=== PATIENT | male | born 1960 | race African-American/Black ===

== ENCOUNTER 2022-08-25 14:18 | Inpatient (IN) | payer MEDICARE, MEDICAID ==
[~2022-08-25 14:18] MED LIST: Iopamidol-370 76% 500 ML 1 ML ONE
[2022-08-25] MEDS ORDERED: niCARdipine 25 MG in Sodium Chloride 0.9% 250 ML 250 ML IVPB SCH (15:00)
[2022-08-25] MEDS ORDERED: niCARdipine 25 MG/10 ML VIAL ONE (16:36)
[2022-08-25] MEDS ORDERED: Morphine 2 MG/ML VIAL SLOW IVP PRN (21:10)
[2022-08-25] MEDS ORDERED: traMADol HCl 50 MG TAB PO PRN (21:10)
[2022-08-25] MEDS ORDERED: Acetaminophen 325 MG TAB PO PRN ×2 (21:10→23:31)
[2022-08-25] MEDS ORDERED: Acetaminophen/Codeine 30-300mg Tablet PO PRN (21:10)
[2022-08-25] MEDS ORDERED: HYDROcodone/Acetaminophen 5/325 mg Tablet PO PRN (21:15)
[2022-08-25] MEDS ORDERED: Dexamethasone 10 MG/ML VIAL SLOW IVP SCH (21:30)
[2022-08-25] MEDS ORDERED: Albuterol Sulfate 2.5 mg/3 ml Neb NEB PRN (21:31)
[2022-08-25] MEDS ORDERED: Ondansetron PF 4 MG/2 ML Vial IVP PRN (23:31)
[2022-08-26] MEDS: Nicotine 21 MG PATCH TD SCH (00:16)
[2022-08-26 00:27] VITALS: BMI 28.0
[2022-08-26 03:26] LABS: #Lymphocytes 1.6 thou/uL (1.20-3.40); #Monocytes 0.3 thou/uL (0.11-0.59); #Neutrophils 5.3 thou/uL (1.40-6.50); %Basophils 0.4 % (0.0-1.0); %Eosinophils 0.4 % (0.0-10.0); %Monocytes 4.6 % (0.0-10.0); %Neutrophils 72.7 % (42.0-75.0); Hemoglobin 17.6 g/dL (14.0-18.0); Mean Corpuscular HGB CONC 34.3 g/dL (32.0-36.0); Mean Corpuscular Hemoglobin 31.3 pg (27.0-31.0); Mean Corpuscular Volume 91.3 fl (78.0-98.0); Mean Platelet Volume 8.7 fL (7.4-10.4); Platelet Count 140 10x3/uL (130-400); RBC Distribution Width 11.3 % (11.5-14.5); Red Blood Cell (RBC) Count 5.63 mill/uL (4.70-6.10); White Blood Cell (WBC) Count 7.3 10x3/uL (4.8-10.8)
[2022-08-26 03:53] LABS: Anion Gap 16 mmol/L (10-20); BUN (Urea Nitrogen) 13 mg/dL (8.4-25.7); Calc. Creatinine Clearance 90 mL/min (70-130); Calcium 9.6 mg/dL (7.8-10.44); Carbon Dioxide 17 mmol/L (22-29); Chloride 103 mmol/L (98-107); Estimated GFR 88; Glucose 118 mg/dL (70-105); Potassium 3.9 mmol/L (3.5-5.1); Sodium 132 mmol/L (136-145)
[2022-08-26] MEDS: Dexamethasone 4 MG TAB PO SCH ×4 (04:10→21:44)
[2022-08-26] MEDS: hydrALAZINE 20 MG/ML VIAL SLOW IVP PRN ×2 (05:17→07:53)
[2022-08-26] MEDS ORDERED: Morphine 4 MG/ML VIAL ONE (07:45)
[2022-08-26] MEDS ORDERED: Morphine 4 MG/ML VIAL SLOW IVP PRN (08:00)
[2022-08-26] MEDS ORDERED: niCARdipine 25 MG in Sodium Chloride 0.9% 250 ML 250 ML IVPB SCH (09:00)
[2022-08-26] MEDS ORDERED: hydrALAZINE 20 MG/ML VIAL SLOW IVP PRN (09:00)
[2022-08-27] MEDS: Nicotine 21 MG PATCH TD SCH (02:34)
[2022-08-27] MEDS: Dexamethasone 4 MG TAB PO SCH ×4 (03:28→21:44)
[2022-08-27 06:09] LABS: #Basophils 0.1 thou/uL (0.0-0.2); #Monocytes 0.8 thou/uL (0.11-0.59); #Neutrophils 9.1 thou/uL (1.40-6.50); %Basophils 0.4 % (0.0-1.0); %Eosinophils 0.1 % (0.0-10.0); %Lymphocytes 16.5 % (21.0-51.0); %Monocytes 6.8 % (0.0-10.0); %Neutrophils 76.2 % (42.0-75.0); Mean Corpuscular HGB CONC 34.2 g/dL (32.0-36.0); Mean Corpuscular Hemoglobin 31.3 pg (27.0-31.0); Mean Corpuscular Volume 91.6 fl (78.0-98.0); Mean Platelet Volume 8.9 fL (7.4-10.4); Platelet Count 177 10x3/uL (130-400); RBC Distribution Width 11.5 % (11.5-14.5); Red Blood Cell (RBC) Count 6.06 mill/uL (4.70-6.10)
[2022-08-27 06:15] LABS: Anion Gap 15 mmol/L (10-20); BUN (Urea Nitrogen) 22 mg/dL (8.4-25.7); Calc. Creatinine Clearance 83 mL/min (70-130); Calcium 10.1 mg/dL (7.8-10.44); Carbon Dioxide 19 mmol/L (22-29); Chloride 103 mmol/L (98-107); Estimated GFR 80; Glucose 151 mg/dL (70-105); Sodium 133 mmol/L (136-145)
[2022-08-27] MEDS ORDERED: Amlodipine 5 MG TAB PO SCH (11:45)
[2022-08-27] MEDS ORDERED: Atorvastatin Calcium 10 MG TAB PO SCH (21:00)
[2022-08-28] MEDS: Nicotine 21 MG PATCH TD SCH (01:06)
[2022-08-28] MEDS: Dexamethasone 4 MG TAB PO SCH ×4 (04:55→17:07)
[2022-08-28 06:12] LABS: #Lymphocytes 2.3 thou/uL (1.20-3.40); #Monocytes 0.7 thou/uL (0.11-0.59); %Eosinophils 0.2 % (0.0-10.0); %Lymphocytes 21.2 % (21.0-51.0); %Monocytes 6.1 % (0.0-10.0); %Neutrophils 72.5 % (42.0-75.0); Hemoglobin 16.8 g/dL (14.0-18.0); Mean Corpuscular HGB CONC 32.3 g/dL (32.0-36.0); Mean Corpuscular Hemoglobin 29.7 pg (27.0-31.0); Mean Corpuscular Volume 91.9 fl (78.0-98.0); Mean Platelet Volume 8.7 fL (7.4-10.4); Platelet Count 163 10x3/uL (130-400); RBC Distribution Width 11.3 % (11.5-14.5); Red Blood Cell (RBC) Count 5.66 mill/uL (4.70-6.10)
[2022-08-28 06:33] LABS: Anion Gap 15 mmol/L (10-20); BUN (Urea Nitrogen) 19 mg/dL (8.4-25.7); Calc. Creatinine Clearance 90 mL/min (70-130); Calcium 9.3 mg/dL (7.8-10.44); Carbon Dioxide 22 mmol/L (22-29); Chloride 100 mmol/L (98-107); Estimated GFR 89; Glucose 140 mg/dL (70-105); Potassium 3.9 mmol/L (3.5-5.1); Sodium 133 mmol/L (136-145)
[2022-08-28] MEDS ORDERED: Amlodipine 5 MG TAB PO SCH ×2 (09:00→09:15)
[2022-08-28 15:53] VITALS: BP 157/84; TEMP 98.3
[2022-08-28] MEDS ORDERED: Losartan 25 MG TAB PO SCH (16:45)
[2022-08-29] MEDS ORDERED: Amlodipine 5 MG TAB PO SCH (09:00)
[2022-08-30] MEDS ORDERED: Dexamethasone 1 MG TAB PO SCH (12:00)
[2022-09-01] MEDS ORDERED: Dexamethasone 1 MG TAB PO SCH (12:00)
[2022-09-03] MEDS ORDERED: Dexamethasone 1 MG TAB PO SCH (12:00)
== END 2022-08-28 18:02 | disposition home or self-care (01) | DRG 64 ==
LOC: ERS 14:18 → ERHOLD 20:07 → CCU 23:51 → NEURO 08-26 13:49
PROVIDERS: ADMIT Family Medicine; ATTEND Family Medicine
DX: I62.9 Nontraumatic intracranial hemorrhage, unspecified (principal); G93.41 Metabolic encephalopathy; G93.6 Cerebral edema; J84.9 Interstitial pulmonary disease, unspecified; I16.1 Hypertensive emergency; E87.1 Hypo-osmolality and hyponatremia; Z20.822 Contact with and (suspected) exposure to COVID-19; I10 Essential (primary) hypertension; F17.210 Nicotine dependence, cigarettes, uncomplicated; F10.10 Alcohol abuse, uncomplicated; F12.10 Cannabis abuse, uncomplicated; G93.89 Other specified disorders of brain; Z79.82 Long term (current) use of aspirin; Z79.51 Long term (current) use of inhaled steroids; Z79.899 Other long term (current) drug therapy
CPT/HCPCS: 36415; 70450; 70496; 70551; 80048; 85025; 93005; 93010; 95712; 95819; 95957; 96365; 96366; J0360; J1100; J2270; J8540; Q9967

== ENCOUNTER 2022-11-19 11:33 | Outpatient (CLI) | payer OTHER, MEDICAID | END 2022-11-19 11:34 | disposition home or self-care (01) | LOC: SCSMRI 11:33 | PROVIDERS: ATTEND Physician Assistant | DX: G93.6 Cerebral edema (principal) | CPT/HCPCS: 70553; 82565 ==